=== PATIENT | male | born 2005 | race Caucasian/White ===

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

== ENCOUNTER 2025-05-11 21:43 | Emergency (ER) | payer OTHER ==
[2025-05-11 21:58] VITALS: BP 116/76; PULSE 99; RESP 18; TEMP 98.4; BMI 35.6
== END 2025-05-11 23:07 | disposition home or self-care (01) ==
LOC: JER 21:43
DX: R21 Rash and other nonspecific skin eruption (principal); L29.9 Pruritus, unspecified; L53.9 Erythematous condition, unspecified; L98.9 Disorder of the skin and subcutaneous tissue, unspecified
CPT/HCPCS: 99283-25